=== PATIENT | male | born 1945 | race Caucasian/White ===

== ENCOUNTER → 2018-09-29 | Outpatient (CLI) | payer MEDICARE, OTHER | END | disposition home or self-care (01) | LOC: LAB SHORT 13:52 → PLD 13:52 | DX: D17.0 Benign lipomatous neoplasm of skin and subcutaneous tissue of head, face and neck (principal) | CPT/HCPCS: 88304 ==

== ENCOUNTER → 2019-03-16 | Outpatient (CLI) | payer MEDICARE, OTHER | END | disposition home or self-care (01) | LOC: PLD 09:32 → LAB SHORT 09:32 | DX: L82.1 Other seborrheic keratosis (principal) | CPT/HCPCS: 88305 ==

== ENCOUNTER 2019-07-21 18:00 | Inpatient (IN) | payer MEDICARE, OTHER ==
[~2019-07-21] VITALS: Ht 182.9 cm; Wt 79.9 kg
[2019-07-21 18:50] LABS: BASOPHILS ABSOLUTE AUTO 0.02 K/mm3 (0.00-0.23); BASOPHILS PERCENT AUTO 0 % (0-2); EOSINOPHILS PERCENT AUTO 0 % (0-6); Hematocrit 45.2 % (37.0-53.0); Hemoglobin 15.6 g/dL (13.5-17.5); IMMATURE GRAN PERCENT AUTO 1 % (0-1); LYMPHOCYTES ABSOLUTE AUTO 0.46 K/mm3 (0.84-5.20); LYMPHOCYTES PERCENT AUTO 3 % (21-46); MONOCYTES ABSOLUTE AUTO 1.25 K/mm3 (0.16-1.47); MONOCYTES PERCENT AUTO 9 % (4-13); Mean Corpuscular HGB 35.3 pg (26.0-34.0); Mean Corpuscular HGB Conc 34.5 g/dL (31.5-36.5); Mean Corpuscular Volume 102 fL (80-100); Mean Platelet Volume 9.9 fL (9.1-12.4); NEUTROPHILS ABSOLUTE AUTO 12.72 K/mm3 (1.96-9.15); NEUTROPHILS PERCENT AUTO 87 % (41-73); Platelet Count 177 K/mm3 (150-400); RDW Coefficient Variation 12.4 % (11.7-14.2); RDW Standard Deviation 46.5 fL (35.1-46.3); Red Blood Cell Count 4.42 M/mm3 (4.30-5.90); White Blood Cell Count 14.55 K/mm3 (4.00-11.30)
[2019-07-21 19:10] LABS: Alanine Aminotransfer (ALT/SGP 49 U/L (12-78); Albumin, Blood 3.9 g/dL (3.4-5.0); Alk Phos 62 U/L (50-136); Anion Gap 6 mmol/L (6-16); Aspartate Aminotrans (AST/SGOT 53 U/L (12-37); Bilirubin, Total 1.1 mg/dL (0.1-1.0); Blood Urea Nitrogen 14 mg/dL (8-24); CO2, Blood 26 mmol/L (21-32); Calcium, Blood 9.8 mg/dL (8.5-10.1); Chloride, Blood 104 mmol/L (98-108); Creatinine, Blood 0.88 mg/dL (0.60-1.20); Globulin, Blood 3.9 g/dL (2.2-4.0); Glomerular Filtration Rate >60 (60-); Glucose, Blood 122 mg/dL (70-99); Potassium, Blood 3.8 mmol/L (3.5-5.5); Sodium, Blood 136 mmol/L (136-145); Total Protein, Blood 7.8 g/dL (6.4-8.2); Troponin I <0.015 ng/mL (0.000-0.040)
[2019-07-21] MEDS ORDERED: XARELTO20 MG PO (21:40)
[2019-07-21] MEDS ORDERED: CARDURA4 MG PO (21:42)
[2019-07-21] MEDS ORDERED: METO100ER PO (21:43)
[2019-07-21] MEDS ORDERED: FINA5 PO (21:44)
--- NOTE | 2019-07-21 23:45 | NUR ---
ADMIT PT ARRIVED TO PCU 4 VIA ER BED AT 2250. PT IS AWAKE, ALERT, ORIENTED, AND PLEASANT. PT SPOUSE AT BEDSIDE UPON ARRIVAL. PT STOOD UP TO TRANSFER TO PCU BED. PT STEADY ON FEET. PT SLOW TO MOVE DUE TO DISCOMFORT FROM ABSCESS. PHOTOS OF ABSCESS TAKEN AND PLACED IN CHART. PT ON ROOM AIR. VITAL SIGNS STABLE. PT WITH HR AFIB 90-110'S. CARDIZEM GTT INFUSING AT 5 MG/HR. URINAL PLACED AT BEDSIDE. WILL CONTINUE TO MONITOR.
--- NOTE | 2019-07-22 05:48 | NUR ---
SHIFT SUMMARY NO ACUTE CHANGES THIS SHIFT. PT HAS REMAINED ALERT AND ORIENTED WHEN AWAKE. PT HAS DENIED PAIN WHILE AT REST. VITAL SIGNS STABLE. CARDIZEM GTT REMAINS AT 5 MG/HR. PT REMAINS IN AFIB 90-110'S. PT USING URINAL TO VOID INDEPENDENTLY. LR INFUSING AT 150 ML/HR. WILL CONTINUE TO MONITOR AND REPORT OFF TO ONCOMING RN.
--- NOTE | 2019-07-22 13:34 | NUR ---
History, Chart, Medications and Allergies reviewed before start of procedure. Lungs clear T/O to Auscultation. Patient confirms NPO status and agrees with scheduled surgery.
--- NOTE | 2019-07-22 15:11 | NUR ---
07/22/19 1511 Олег Collins PATIENT ON SCHEDULED ANTIBIOTICS
--- NOTE | 2019-07-22 19:52 | NUR ---
SHIFT SUMMARY PT A&Ox4; CALM AND COOPERATIVE WITH CARE. PT RESTING IN BED THIS AM PRIOR TO PROCEDURE; AFTER PROCEDURE UP IN CHAIR. PT REPORTS PAIN IN ABCESS AREA WITH AMBULATION; DENIES NEED FOR PAIN MEDICATION. PT DENEIS SOB AND NAUSEA T/O SHIFT. PT NPO OTHER THAN WATER UNTIL 1000; NOTIFIED DR GALO. PT TAKEN TO PROCEDURE THIS AFTERNOON AT APPROX 1320, RETURED TO ROOM AT APPROX 1415, BEDSIDE REPORT GIVEN TO GLASS CURVATURE GAUGER JACKIE, WHO ASSISTED WITH RECOVERY. VSS. TITRATED OFF O2. HR 90-110'S T/O SHIFT, CONTINUED ON CARDIZEM GTT AT 5ML/HR. NO OTHER ACUTE CHANGES NOTED DURING SHIFT. REPORT GIVEN TO ONCOMING RN.
[2019-07-23 04:31] LABS: BASOPHILS ABSOLUTE AUTO 0.01 K/mm3 (0.00-0.23); BASOPHILS PERCENT AUTO 0 % (0-2); EOSINOPHILS PERCENT AUTO 0 % (0-6); Hematocrit 36.8 % (37.0-53.0); Hemoglobin 12.3 g/dL (13.5-17.5); IMMATURE GRAN ABSOLUTE AUTO 0.04 K/mm3 (0.00-0.10); IMMATURE GRAN PERCENT AUTO 1 % (0-1); LYMPHOCYTES ABSOLUTE AUTO 0.21 K/mm3 (0.84-5.20); LYMPHOCYTES PERCENT AUTO 3 % (21-46); MONOCYTES PERCENT AUTO 6 % (4-13); Mean Corpuscular HGB 34.9 pg (26.0-34.0); Mean Corpuscular HGB Conc 33.4 g/dL (31.5-36.5); Mean Platelet Volume 10.2 fL (9.1-12.4); NEUTROPHILS PERCENT AUTO 91 % (41-73); Platelet Count 183 K/mm3 (150-400); RDW Coefficient Variation 12.5 % (11.7-14.2); RDW Standard Deviation 47.9 fL (35.1-46.3); Red Blood Cell Count 3.52 M/mm3 (4.30-5.90); White Blood Cell Count 6.96 K/mm3 (4.00-11.30)
[2019-07-23 04:32] LABS: Mean Corpuscular Volume 105 fL (80-100)
[2019-07-23 04:51] LABS: Anion Gap 4 mmol/L (6-16); Blood Urea Nitrogen 15 mg/dL (8-24); CO2, Blood 28 mmol/L (21-32); Calcium, Blood 8.8 mg/dL (8.5-10.1); Chloride, Blood 107 mmol/L (98-108); Creatinine, Blood 0.75 mg/dL (0.60-1.20); Glomerular Filtration Rate >60 (60-); Glucose, Blood 178 mg/dL (70-99); Magnesium, Blood 2.1 mg/dL (1.6-2.4); Potassium, Blood 4.5 mmol/L (3.5-5.5); Sodium, Blood 139 mmol/L (136-145)
--- NOTE | 2019-07-23 07:15 | NUR ---
PATIENT CALLED TO GET OOB TO HIS RECLINER. PATIENT ASSISTED TO RECLINER WITH STANDBY ASSIST, PT WITH STEADY GAIT. PT DENIES OTHER NEEDS AT THIS TIME. CALL LIGHT IN REACH, REPORT RECIEVED FROM HALLEY MERINO RN.
--- NOTE | 2019-07-23 07:50 | NUR ---
INITIAL ASSESSMENT: PATIENT IS OOB TO RECLINER. HE IS ALERT AND OX3. PT DENIES PAIN AT THIS TIME. HE STATES HE IS COMFORTABLE IN THE RECLINER. HF IRREG, PT IS IN A-FIB WITH A RATE IN THE 80S. CARDIZEM GTT INFUSING AT 5MG/HR. THIS RN TO ADMINISTER PTS AM MEDS AND ATTEMPT TO TURN CARDIZEM OFF TO ASSESS IF PATIENTS HEART RATE WILL STAY WNL WITH PO MEDS. VSS. LS CTA. BIOX WNL ON RA. BT+, PT STATES HE HAS NOT HAD A BM FOR A COUPLE OF DAYS, WILL MAKE SURE MD IS AWARE. PPP. NO EDEMA PRESENT. AM IV ABX HUNG. PO AM MEDS GIVEN WHOLE WITH A SIP OF WATER WITHOUT DIFFICULTY. PT DENIES OTHER NEEDS AT THIS TIME, CALL LIGHT IN REACH. WILL CONTINUE TO MONITOR.
--- NOTE | 2019-07-23 08:04 | NUR ---
SHIFT SUMMARY PT A&O X 4; O2 SATS >93 ON RA; BP STABLE; HR 89-100; AFIB NOTED ON TELE MONITOR; CARDIZEM GTT @ 5; HR NEEDS TO SUSTAIN AT 80 TO DC PER ORDERS; PT DENIES CHEST PAIN; FAMILY WAS AT BEDSIDE AT START OF SHIFT; PT SLEPT WELL IN BETWEEN INTERVENTIONS; PT TRANSFERED TO CHAIR W/ DAY SHIFT RN; REPORT GIVEN; CALL LIGHT IN REACH; PT DENIES NEEDS AT THIS TIME.
--- NOTE | 2019-07-23 08:30 | NUR ---
CARDIZEM GTT TURNED OFF, PTS HEART RATE SUSTAINING ON THE 80S PER HYDROGENATION STILL OPERATOR.
--- NOTE | 2019-07-23 08:30 | NUR ---
REPORT GIVEN TO ALEX CHOI
--- NOTE | 2019-07-23 10:00 | NUR ---
DR RAMIREZ TO ROOM FOR EVAL. OK TO DC HOME ONCE CLEARED BY HOSPITALIST.
--- NOTE | 2019-07-23 11:01 | NUR ---
DR DON AT BEDSIDE. PLAN TO DC HOME TODAY.
[2019-07-23] MEDS ORDERED: Vsl#3 Capsule1 EACH PO (11:33)
[2019-07-23] MEDS ORDERED: AMOCLA500 PO (11:33)
== END 2019-07-23 12:52 | disposition home or self-care (01) | DRG 854 ==
LOC: ER 18:00 → PCU 21:30
PROVIDERS: Internal Medicine; Physician Assistant; Surgery; ADMIT Internal Medicine
PROC: 0D9P00Z Drainage of Rectum with Drainage Device, Open Approach (ICD-10-PCS; principal; 2019-07-22 13:45)
DX: A41.9 Sepsis, unspecified organism (principal); K61.0 Anal abscess; I48.19 Other persistent atrial fibrillation; R65.20 Severe sepsis without septic shock; N40.0 Benign prostatic hyperplasia without lower urinary tract symptoms; I10 Essential (primary) hypertension; E86.0 Dehydration
CPT/HCPCS: 36415; 72193; 80048; 80053; 83605; 83735; 84484; 85025; 87040; 93005; 93010; 96361; 96365; 96368; 96375; 96376; 99285-25; J0696; J1100; J2405; J2543; J2704; J3010; J7030; J7120; Q9967

== ENCOUNTER 2020-04-07 06:02 | Day surgery (SDC) | payer MEDICARE, OTHER ==
[~2020-04-07] VITALS: Ht 177.8 cm; Wt 95.2 kg
[~2020-04-07 06:02] MED LIST: AMOCLA500 PO; CARDURA4 MG PO; CENTRUM SILVER1 EAC2 PO; FINA5 PO; METO100ER PO; Vsl#3 Capsule1 EACH PO; WARF5 PO; XARELTO20 MG PO
--- NOTE | 2020-04-07 06:20 | NUR ---
Ambulatory in Day Surgery History, Chart, Medications and Allergies reviewed before start of procedure.Patient confirms NPO status and agrees with scheduled surgery. Lungs clear T/O to Auscultation.
--- NOTE | 2020-04-07 09:02 | NUR ---
Patient up to Ambulate independently. Gait steady. Discharge instructions reviewed with patient. Patient verbalizes understanding. Copy given to patient to take home. History, Chart, Medications and Allergies reviewed before start of procedure. Patient States Post-Procedure ride home has been arranged. Discharged via wheelchair to private car for ride home.
== END 2020-04-07 09:37 | disposition home or self-care (01) ==
LOC: ORSCMMR 06:02 → ORD 07:30 → ORSCMMR 07:30
PROVIDERS: Surgery
PROC: 0H89XZZ Division of Perineum Skin, External Approach (ICD-10-PCS; principal; 2020-04-07 07:30)
DX: K60.3 Anal fistula (principal); I48.91 Unspecified atrial fibrillation; Z79.01 Long term (current) use of anticoagulants; E66.9 Obesity, unspecified; Z68.30 Body mass index [BMI] 30.0-30.9, adult; Z79.899 Other long term (current) drug therapy; F17.220 Nicotine dependence, chewing tobacco, uncomplicated
CPT/HCPCS: J0690; J1100; J2370; J2405; J2704; J3010; J7120

== ENCOUNTER 2020-07-30 18:36 | Inpatient (IN) | payer MEDICARE, OTHER ==
[~2020-07-30] VITALS: Ht 177.8 cm; Wt 94.3 kg
[2020-07-30 20:36] LABS: BASOPHILS ABSOLUTE AUTO 0.05 K/mm3 (0.00-0.23); BASOPHILS PERCENT AUTO 0 % (0-2); EOSINOPHILS ABSOLUTE AUTO 0.01 K/mm3 (0.00-0.68); EOSINOPHILS PERCENT AUTO 0 % (0-6); Hematocrit 43.9 % (37.0-53.0); Hemoglobin 15.1 g/dL (13.5-17.5); IMMATURE GRAN ABSOLUTE AUTO 0.07 K/mm3 (0.00-0.10); IMMATURE GRAN PERCENT AUTO 1 % (0-1); LYMPHOCYTES ABSOLUTE AUTO 0.74 K/mm3 (0.84-5.20); LYMPHOCYTES PERCENT AUTO 5 % (21-46); MONOCYTES ABSOLUTE AUTO 0.98 K/mm3 (0.16-1.47); MONOCYTES PERCENT AUTO 7 % (4-13); Mean Corpuscular HGB 33.9 pg (26.0-34.0); Mean Corpuscular HGB Conc 34.4 g/dL (31.5-36.5); Mean Corpuscular Volume 98 fL (80-100); Mean Platelet Volume 9.3 fL (9.1-12.4); NEUTROPHILS ABSOLUTE AUTO 13.26 K/mm3 (1.96-9.15); NEUTROPHILS PERCENT AUTO 88 % (41-73); Platelet Count 180 K/mm3 (150-400); RDW Coefficient Variation 11.9 % (11.7-14.2); RDW Standard Deviation 43.5 fL (35.1-46.3); Red Blood Cell Count 4.46 M/mm3 (4.30-5.90); White Blood Cell Count 15.11 K/mm3 (4.00-11.30)
[2020-07-30 20:50] LABS: International Normalized Ratio 1.76; Prothrombin Time Results 18.2 Sec (9.7-11.5)
[2020-07-30 20:52] LABS: Alanine Aminotransfer (ALT/SGP 37 U/L (12-78); Albumin, Blood 3.9 g/dL (3.4-5.0); Albumin/Globulin Ratio 1.2 (0.8-1.8); Alk Phos 57 U/L (50-136); Anion Gap 5 mmol/L (6-16); Aspartate Aminotrans (AST/SGOT 29 U/L (12-37); Bilirubin, Total 0.4 mg/dL (0.1-1.0); Blood Urea Nitrogen 15 mg/dL (8-24); Bun/Creatinine Ratio 19.7 (12.0-20.0); CO2, Blood 30 mmol/L (21-32); Chloride, Blood 105 mmol/L (98-108); Creatinine, Blood 0.76 mg/dL (0.60-1.20); Globulin, Blood 3.3 g/dL (2.2-4.0); Glomerular Filtration Rate >60 (60-); Glucose, Blood 123 mg/dL (70-99); Potassium, Blood 4.5 mmol/L (3.5-5.5); Sodium, Blood 140 mmol/L (136-145); Total Protein, Blood 7.2 g/dL (6.4-8.2)
--- NOTE | 2020-07-30 23:00 | NUR ---
RECEIVED REPORT FROM SADIQ ARZATE RN . PT TRANSPORTED TO MEDICAL FLOOR VIA GURNEY, TRANSFERRED TO BED VIA SLIDE SHEET. VS TAKEN, ORIENTED TO ROOM/UNIT. BROUGHT PT A SNACK. NO OTHER ACUTE NEEDS ASSESSED AT THIS TIME. CALL LIGHT, POSSESSIONS IN REACH, BED IN LOW POSITION. CONTINUE TO MONITOR.
[2020-07-31 04:52] LABS: BASOPHILS ABSOLUTE AUTO 0.04 K/mm3 (0.00-0.23); BASOPHILS PERCENT AUTO 1 % (0-2); EOSINOPHILS ABSOLUTE AUTO 0.04 K/mm3 (0.00-0.68); EOSINOPHILS PERCENT AUTO 1 % (0-6); Hematocrit 39.7 % (37.0-53.0); Hemoglobin 13.3 g/dL (13.5-17.5); IMMATURE GRAN ABSOLUTE AUTO 0.03 K/mm3 (0.00-0.10); IMMATURE GRAN PERCENT AUTO 0 % (0-1); LYMPHOCYTES ABSOLUTE AUTO 1.05 K/mm3 (0.84-5.20); LYMPHOCYTES PERCENT AUTO 12 % (21-46); MONOCYTES ABSOLUTE AUTO 0.87 K/mm3 (0.16-1.47); MONOCYTES PERCENT AUTO 10 % (4-13); Mean Corpuscular HGB 33.2 pg (26.0-34.0); Mean Corpuscular HGB Conc 33.5 g/dL (31.5-36.5); Mean Corpuscular Volume 99 fL (80-100); Mean Platelet Volume 9.9 fL (9.1-12.4); NEUTROPHILS ABSOLUTE AUTO 6.47 K/mm3 (1.96-9.15); NEUTROPHILS PERCENT AUTO 76 % (41-73); Platelet Count 159 K/mm3 (150-400); RDW Standard Deviation 44.6 fL (35.1-46.3); Red Blood Cell Count 4.01 M/mm3 (4.30-5.90)
[2020-07-31 05:09] LABS: Anion Gap 4 mmol/L (6-16); Blood Urea Nitrogen 13 mg/dL (8-24); Bun/Creatinine Ratio 19.1 (12.0-20.0); CO2, Blood 29 mmol/L (21-32); Calcium, Blood 8.7 mg/dL (8.5-10.1); Chloride, Blood 106 mmol/L (98-108); Creatinine, Blood 0.68 mg/dL (0.60-1.20); Glomerular Filtration Rate >60 (60-); Glucose, Blood 153 mg/dL (70-99); Potassium, Blood 3.7 mmol/L (3.5-5.5); Sodium, Blood 139 mmol/L (136-145)
--- NOTE | 2020-07-31 06:45 | NUR ---
SHIFT SUMMARY PT ASLEEP, NO S/S ACUTE DISTRESS NOTED, HAS BEEN SLEEPING T/O MUCH OF NIGHT. NO CARDIAC EVENTS REPORTED, VS REVIEWED,WNL. PAIN MANAGED WITH MEDS PER EMAR. ORTHO CONSULT PENDING AT THIS TIME, WILL INFORM DAY RN. NO ACUTE NEEDS ASSESSED AT THIS TIME. CALL LIGHT, POSSESSIONS IN REACH, BED IN LOW POSITION. REPORT GIVEN TO IJMBO VALENZUELA.
--- NOTE | 2020-07-31 17:58 | NUR ---
PT AOX4 AND COOPERATIVE IF CARE. PT HAS BEEN DOING WELL TODAY. PT STATES HIS PAIN IS ABOUT A 3 UNLESS HE HAS TO MOVE THEN GETS UP TO A 10 DURING TRANFER. PT WAS SEEN BY DR COBOS AND WILL NOT NEED SURGERY FOR HIS PELVIS. PT CAN CALL APPROPRIATELY AND CALL LIGHT IS WITHIN REACH. WILL CONTINUE TO MONITOR.
--- NOTE | 2020-07-31 18:41 | NUR ---
DURING DINNER TELE MONITOR JEROME CALLED TO REPORT HR UP TO 185. HR BEGAN TO SLOW DOWN INTO 140-150. PT COULD NOT TELL ANYTHING HAD CHANGED. PT STATED THIS WAS A PROBLEM THE LAST TIME HE WAS IN THE HOSPITAL. CALLED TELE MONITOR AFTER LEAVING ROOM AND PT WAS THEN DOWN TO 128-[address] PRITCHARD WAS NOFIFIED AND HE ADDED A ONE TIME DOSE TO EMAR. WILL CONTINUE TO MONITOR.
--- NOTE | 2020-07-31 19:05 | NUR ---
ASSUMED CARE RECEIVED REPORT FROM JIMBO VALENZUELA. PT SITTING UP IN CHAIR, IN NO ACUTE DISTRESS. DENIES PAIN AT THIS TIME. DENIES NEEDS. CALL LIGHT, POSSESSIONS IN REACH, CONTINUE TO MONITOR.
--- NOTE | 2020-08-01 07:15 | NUR ---
SHIFT SUMMARY PT RESTING COMFORTABLY, NO ACUTE DISTRESS NOTED. VS REVIEWED, WNL. NO CARDIAC EVENTS REPORTED OVERNIGHT, HR REMAINED STABLE. NO C/O PAIN T/O NIGHT. TRANSFERRED WITH MODERATE ASSISTANCE. NO ACUTE CHANGES IN CONDITION T/O NIGHT. PT DENIES NEEDS AT THIS TIME. CALL LIGHT, POSSESSIONS IN REACH, BED IN LOW POSITION WITH ALARMS ON. REPORT GIVEN TO JIMBO GARCIA.
--- NOTE | 2020-08-01 09:39 | NUR ---
Rachel given so pt can work with pt.
--- NOTE | 2020-08-01 16:57 | NUR ---
Echocardiogram completed.
[2020-08-01 18:01] LABS: International Normalized Ratio 1.43
--- NOTE | 2020-08-01 18:46 | NUR ---
PATIENT A/OX4, UP WITH 1 ASSIST TO CHAIR. PAINFUL WITH TRANSFERRING. NORCO GIVEN Z1 THIS SHIFT. TOLERATING CARDIAC DIET. MRI OF R SHOULDER COMPLETED TODAY. PLAN IS TO HOLD OFF ON ROTATOR CUFF REPAIR UNTIL PELVIC FX HEALED. SNF RECOMENDED BY PT/OT. WOULD LIKE TO TAKE PATIENT HOME WITH HOME HEALTH. SKIN INTACT. CALM AND COOPERATIVE WITH CARE.
[2020-08-02 05:17] LABS: International Normalized Ratio 1.35; Prothrombin Time Results 14.2 Sec (9.7-11.5)
--- NOTE | 2020-08-02 06:30 | NUR ---
SHIFT SUMMARY NO ACUTE CHANGES THIS SHIFT. AOX3. SLOW TO RESPOND. ANSWERS QUESTIONS & FOLLOWS SIMPLE DIRECTIONS. REPORTS 1/10 PAIN IN R HIP WHILE LYING IN BED, STATES HE DOESN'T HAVE MUCH PAIN UNLESS HE IS UP TRANSFERRING OR c MOVEMENT. VSS. TELE AFIB @77. PLAN IS TO DC TO SNF OR HOME c HH. CALL LIGHT IN REACH, ABLE TO MAKE NEEDS KNOWN. WILL MONITOR.
--- NOTE | 2020-08-02 18:17 | NUR ---
PATIENTHAD A GOOD DAY. UP TO CHAIR FOR MOST OF THE SHIFT. 1 PERSON ASSIST WITH FWW AND GB. NO BM SINCE ADMIT, MIRALAX GIVEN THIS EVENING. PAIN SLIGHTLY IMPROVED TODAY WITH 1 NORCO PRIOR TO PT/OT. PATIENT DENIES PAIN AT REST. VSS, ON RA. A-FIB ON TELE WITH HR 70-110. TOLERATING CARDIAC DIET. PATIENT AND CONTINUE TO BE UNDECIDED ABOUT HOME HEALTH VS SNF. COOPERATIVE WITH CARE, CALLS APPROPRIATELY FOR ASSISTANCE.
[2020-08-03 05:38] LABS: International Normalized Ratio 1.45; Prothrombin Time Results 15.2 Sec (9.7-11.5)
--- NOTE | 2020-08-03 05:54 | NUR ---
SHIFT SUMMARY AOX3. SLOW TO RESPOND. FLAT, WITHDRAWN AFFECT. VSS. TELE AFIB @90. 1 ASSIST c FWW TO BED FROM RECLINER, PT STATES HE PLACES MOST OF WT ON L LEG. DENIES PAIN IN R PELVIS FX @REST, STATES IT ONLY HURTS c MOVEMENT & DOESN'T WANT TO MOVE OR ASSIST c ROLLING IN BED FOR ATTENDS CHANGES BECAUSE OF PAIN. RELUCTANT TO TAKE PAIN MEDS, STATES "I DON'T WANT TO TAKE TOO MANY" EDUCATED ON THE IMPORTANCE TO TAKE PAIN MEDICATION BEFORE HAVING 8/10 SHARP PAIN c MOVEMENT IN R HIP/GROIN AREA. MEDICATED 1X c NORCO. PLAN IS TO POSSIBLY DC c HH TODAY. CALL LIGHT IN REACH.
--- NOTE | 2020-08-03 17:18 | NUR ---
UPDATE FROM PATIENT'S : PATIENT REPORTS THAT SHE HAS THE HOUSE SET UP TO MAKE SPACE FOR THE ADDITIONAL REQUIREMENTS OF HER 'S DISCHARGE. SHE REPORTS THAT SHE IS STILL WAITING TO HEAR BACK FROM [employer] TO DELIVER THE EQUIPMENT. SHE WOULD REALLY LIKE TO BE ABLE TO PARTICIPATE IN A PT SESSION TOMORROW BEFORE THE PATIENT DISCHARGES.
--- NOTE | 2020-08-03 19:05 | NUR ---
ASSUMED CARE RECEIVED REPORT FROM JIMBO SHAH. PT SITTING UP IN CHAIR, IN NO ACUTE DISTRESS. DENIES PAIN OR NEEDS AT THIS TIME. DAUGHTER GOING HOME FOR THE EVENING. CALL LIGHT, POSSESSIONS IN REACH, CONTINUE TO MONITOR.
--- NOTE | 2020-08-03 20:10 | NUR ---
END OF SHIFT SUMMARY: PATIENT DENIED PAIN AT REST. PATIENT REPORTED THAT PAIN WAS AN 8/10 WITH MOVEMENT. PROVIDED EDUCATION ABOUT PAIN MEDICATION. PATIENT REPORTED THAT RECIEVING THE PAIN MEDICATION THROUGHOUT THE DAY HELPED HIM NOT BE ANXIOUS ABOUT MOBILITY. PATIENT WORKED WITH PT AND OT WITH THE DAUGHTER IN THE ROOM. PATIENT REPORTS IMPROVED SPIRITS. SPOKE WITH THE PATIENT'S . SHE REPORTS THAT SHE HAS REARRANGED THE HOUSE TO ACCOMODATE THE EXTRA EQUIPMENT NEEDED. SHE REPORTS THAT SHE WAS SUPPOSED TO HEAR BACK FROM [employer] RE: DELIVERY OF EQUIPMENT, BUT THAT THEY HAVE NOT CONTACTED HER YET. SHE REPORTS THAT SHE WOULD LIKE TO BE PRESENT FOR A PT/OT SESSION TOMORROW TO LEARN TRANSFER TECHNIQUES. NOTIFIED HARVEST CONTRACTOR RN.
--- NOTE | 2020-08-04 04:40 | NUR ---
SHIFT SUMMARY PT ASLEEP, IN NO ACUTE DISTRESS. WAS MONITORED EVERY 1-2 HOURS WITH NEEDS MET. VS REVIEWED, WNL. NO ACUTE CHANGES IN CONDITION NOTED T/O NIGHT. PAIN MANAGED WITH MEDS PER EMAR. PT SLEPT T/O MUCH OF THE NIGHT. NO CARDIAC EVENTS REPORTED T/O NIGHT. WAS IN GOOD SPIRITS, HOPEFUL TO D/C HOME. NO ACUTE NEEDS ASSESSED AT THIS TIME. CALL LIGHT, POSSESSIONS IN REACH, BED IN LOW POSITION WITH ALARMS ON. CONTINUE TO MONITOR, REPORT OFF TO DAY RN.
[2020-08-04 05:17] LABS: International Normalized Ratio 1.81; Prothrombin Time Results 18.7 Sec (9.7-11.5)
--- NOTE | 2020-08-04 18:27 | NUR ---
NO ACUTE CHANGES. WAITING FOR [employer] TO DELIVER BED THEN PT WILL BE DISCHARGED SATURDAY. PT ALERT AND ORIENTED AND ABLE TO EXPRESS ANY NEEDS. CALL LIGHT WITHIN REACH.
--- NOTE | 2020-08-04 19:05 | NUR ---
ASSUMED CARE RECEIVED REPORT FROM JIMBO BESS. PT SITTING UP IN CHAIR, ASSISTED TO BSC, REMINDED TO CALL WHEN FINISHED. INDICATED UNDERSTANDING. CALL LIGHT AND FWW IN REACH. NO OTHER ACUTE NEEDS ASSESSED. CONTINUE TO MONITOR.
--- NOTE | 2020-08-05 04:17 | NUR ---
SHIFT SUMMARY PT LYING IN BED, IN NO ACUTE DISTRESS. VS REVIEWED, WNL. PT UP TO BSC/CHAIR WITH 1 ASSIST C FWW/GAIT BELT. TOLERATED WELL, NO C/O PAIN. SLEPT ON AND OFF DURING THE NIGHT. NO CARDIAC EVENTS OVERNIGHT. NO ACUTE NEEDS ASSESSED AT THIS TIME. CALL LIGHT, POSSESSIONS IN REACH, BED IN LOW POSITION WITH ALARMS ON. CONTINUE TO MONITOR, REPORT OFF TO DAY RN.
[2020-08-05 04:52] LABS: International Normalized Ratio 1.95; Prothrombin Time Results 20.1 Sec (9.7-11.5)
[2020-08-05] MEDS ORDERED: DILT120 PO (12:18)
[2020-08-05] MEDS ORDERED: SENNA LAXATIVE8.6 MG PO (12:19)
[2020-08-05] MEDS ORDERED: Norco 5-325 Ta1 EACH PO (12:20)
[2020-08-05] MEDS ORDERED: MIRT15 PO (12:20)
[2020-08-05] MEDS ORDERED: MIRALAX17 GM PO (12:21)
[2020-08-05] MEDS ORDERED: TAMS.4ER PO (12:21)
--- NOTE | 2020-08-05 15:25 | NUR ---
PT TO DISCHARGE HOME. IV REMOVED, NO SS OF INFECTION NOTED. CAME AND NURSE WENT OVER MEDS WITH BOTH . APPOINTMENT MADE WITH PCP. MEDS FAXED TO [facility]. HARD SCRIPT GIVEN TO . NURSE EDUCATED REGARDING TRANSFERS. PT WHEELED DOWN TO CAR AND TAKEN HOME BY AND NEIGHBOR.
== END 2020-08-05 15:11 | disposition home health service (06) | DRG 536 ==
LOC: ER 18:36 → MEDS 18:37 → ENPENDDIS 08-05 11:53 → MEDS 08-05 15:11
PROVIDERS: Emergency Medicine; Internal Medicine; ADMIT Family Medicine
DX: S32.511A Fracture of superior rim of right pubis, initial encounter for closed fracture (principal); S46.001A Unspecified injury of muscle(s) and tendon(s) of the rotator cuff of right shoulder, initial encounter; I10 Essential (primary) hypertension; I48.91 Unspecified atrial fibrillation; N40.0 Benign prostatic hyperplasia without lower urinary tract symptoms; W19.XXXA Unspecified fall, initial encounter; Z79.01 Long term (current) use of anticoagulants; F32.9 Major depressive disorder, single episode, unspecified
CPT/HCPCS: 36415; 70450; 73030; 73221; 73502; 73700; 80048; 80053; 85025; 85610; 93306; 97110; 97112; 97116; 97162; 97166; 97530; 97535; 99285-25; A9270; G0378

== ENCOUNTER → 2020-08-09 | Outpatient (CLI) | payer MEDICARE, OTHER ==
[~2020-08-09] MED LIST changes: +DILT120 PO; +MIRALAX17 GM PO; +MIRT15 PO; +Norco 5-325 Ta1 EACH PO; +SENNA LAXATIVE8.6 MG PO; +TAMS.4ER PO
== END | disposition home or self-care (01) ==
LOC: LAB 11:36 → LAB SHORT 11:36
DX: D22.62 Melanocytic nevi of left upper limb, including shoulder (principal); L82.1 Other seborrheic keratosis
CPT/HCPCS: 88305

== ENCOUNTER → 2021-02-08 | Outpatient (CLI) | payer MEDICARE, OTHER | END | disposition home or self-care (01) | LOC: LAB SHORT 11:18 → LAB 11:18 | DX: C44.219 Basal cell carcinoma of skin of left ear and external auricular canal (principal) | CPT/HCPCS: 88305 ==

== ENCOUNTER 2021-05-09 12:09 | Day surgery (SDC) | payer MEDICARE, OTHER ==
[~2021-05-09] VITALS: Ht 177.8 cm; Wt 102.6 kg
--- NOTE | 2021-05-09 12:51 | NUR ---
History, Chart, Medications and Allergies reviewed before start of procedure. Patient confirms NPO status and agrees with scheduled surgery. Reports taking all of colon prep with clear results. Patient has ride arranged with his post-procedure.
--- NOTE | 2021-05-09 14:41 | NUR ---
RECEIVED REPORT FROM DWAYNE HUI. PATIENT ALERT AND ORIENTED, CONVERSING WITH DOCTOR. REPORTS A LITTLE ABDOMINAL CRAMPING. TOLERATING PO FLUIDS, REQUESTING TO GO HOME/
--- NOTE | 2021-05-09 14:41 | NUR ---
05/09/21 1441 Monica Bashir History, Chart, Medications and Allergies reviewed before start of procedure. Patient confirms NPO status and agrees with scheduled surgery. 3-LEAD EKG REVIEWED WITH PHYSICIAN PRIOR TO START OF PROCEDURE. MONITOR INTACT WITH CONTINUOUS PULSE OXIMETRY AND INTERMITTENT BP. PATIENT DETERMINED TO BE ASA APPROPRIATE FOR PROPOFOL SEDATION PRIOR TO START OF PROCEDURE BY .
--- NOTE | 2021-05-09 15:10 | NUR ---
Ambulatory in Day Surgery Discharge instructions reviewed with patient. Patient verbalizes understanding. Copy given to patient to take home. Patient States Post-Procedure ride home has been arranged. Discharged via wheelchair to private car for ride home. ALL BELONGINGS RETURNED TO PATIENT.
== END 2021-05-09 23:41 | disposition home or self-care (01) ==
LOC: ORSCMMR 12:09 → ORD 13:30 → ORSCMMR 23:41
PROVIDERS: Surgery
PROC: 0DJD8ZZ Inspection of Lower Intestinal Tract, Via Natural or Artificial Opening Endoscopic (ICD-10-PCS; principal; 2021-05-09 13:30)
DX: Z12.11 Encounter for screening for malignant neoplasm of colon (principal); Z86.010 Personal history of colon polyps; I48.91 Unspecified atrial fibrillation; I10 Essential (primary) hypertension; E78.5 Hyperlipidemia, unspecified; Z79.01 Long term (current) use of anticoagulants; Z79.899 Other long term (current) drug therapy
CPT/HCPCS: J2704; J7120